=== PATIENT | female | born 1985 | race Caucasian/White ===

== ENCOUNTER 2022-02-21 11:33 | Emergency (ER) | payer BC ==
[~2022-02-21] VITALS: Ht 160 cm; Wt 74.8 kg
--- NOTE | 2022-02-21 11:42 | NUR ---
BIBS W/ FAMILY AT BEDSIDE, W/ C/O ON & OFF ABDOMINAL PAIN, NAUSEA/VOMITING X 1-1/2 WEEKS. PT REPORTS THAT SHE IS 7 WEEKS , LMP 12/2021, G-1/P-0. TO ER BED 11.
[2022-02-21] MEDS ORDERED: IV NS 0.9% 1,000 ML BAG IV ONE (12:00)
[2022-02-21] MEDS ORDERED: ONDANSETRON HCL/PF 4 MG/2 ML VIAL IVP ONE (12:00)
[2022-02-21] MEDS ORDERED: ONDANSETRON HCL/PF 4 MG/2 ML VIAL ONE (12:04)
[2022-02-21 12:15] LABS: BASOPHILS # (AUTO) 0.1 K/uL (0.0-0.2); BASOPHILS % (AUTO) 0.6 % (0.0-2.0); EOSINOPHILS % (AUTO) 0.8 % (0.0-6.0); HEMATOCRIT 39 % (33-45); HEMOGLOBIN 13.7 g/dL (11.5-14.8); LYMPHOCYTES % (AUTO) 19.5 % (20.0-44.0); MEAN CORPUSCULAR HGB CONC 35 g/dl (31.0-36.0); MEAN CORPUSCULAR VOLUME 92 fL (82-100); MONOCYTES # (AUTO) 0.7 K/uL (0.1-1.30); MONOCYTES % (AUTO) 6.5 % (2.0-12.0); NEUTROPHILS # (AUTO) 7.4 K/uL (1.8-8.9); NEUTROPHILS % (AUTO) 72.6 % (43.0-81.0); PLATELET COUNT (AUTO) 324 K/uL (150-450); RED BLOOD CELL COUNT(AUTO) 4.26 MIL/uL (4.0-5.2); WHITE BLOOD COUNT (AUTO) 10.2 K/uL (4.3-11.0)
--- NOTE | 2022-02-21 12:15 | NUR ---
PHLEB AT BEDSIDE FOR BLOOD DRAW
--- NOTE | 2022-02-21 12:21 | NUR ---
IV LINE ESTABLISHED ON LAC #20; IV FLUIDS INFUSING. ZOFRAN IV GIVEN, ZAID WELL
[2022-02-21 12:29] LABS: CALCIUM, SERUM 9.2 mg/dL (8.5-10.1); CREATININE 0.7 mg/dL (0.6-1.3); POTASSIUM 3.4 mmol/L (3.5-5.1)
[2022-02-21] MEDS ORDERED: ONDA4TAB5 PO (13:03)
--- NOTE | 2022-02-21 13:11 | NUR ---
IV removed. Catheter intact and site benign. Pressure and 4x4 applied to site. No bleeding noted.
--- NOTE | 2022-02-21 13:21 | NUR ---
Patient discharged to home in stable condition. Written and verbal after care instructions given. Patient verbalizes understanding of instruction.
[2022-02-21 13:28] VITALS: BP 120/68
== END 2022-02-21 13:29 | disposition home or self-care (01) ==
LOC: ER 11:36
DX: O21.0 Mild hyperemesis gravidarum (principal); Z3A.08 8 weeks gestation of pregnancy; Z88.0 Allergy status to penicillin; Z88.8 Allergy status to other drugs, medicaments and biological substances; Z79.899 Other long term (current) drug therapy
CPT/HCPCS: 99284; 96374; 76805; 96361; 85025; 80048; 36415; 84702; J2405; J7030

== ENCOUNTER 2025-02-25 16:19 | Emergency (ER) | payer BC ==
[~2025-02-25] VITALS: Ht 157.5 cm; Wt 74.8 kg
[~2025-02-25 16:19] MED LIST: ONDA4TAB5 PO
[2025-02-25] MEDS ORDERED: TDAP [DIPH/PERTUSSIS/TET] 0.5 ML VIAL IM ONE (16:59)
[2025-02-25] MEDS: TDAP [DIPH/PERTUSSIS/TET] 0.5 ML VIAL IM ONE (17:08)
[2025-02-25 17:23] LABS: PLATELET COUNT (AUTO) 319 K/uL (150-450); RED BLOOD CELL COUNT(AUTO) 4.48 MIL/uL (4.0-5.2); RED CELL DISTRIBUTION WIDTH 12.3 % (11.5-15.0); WHITE BLOOD COUNT (AUTO) 9.8 K/uL (4.3-11.0)
[2025-02-25 17:31] LABS: CALCIUM, SERUM 9.4 mg/dL (8.5-10.1); CREATININE 0.7 mg/dL (0.6-1.3); SODIUM SERUM 137.0 mmol/L (136-145); UREA NITROGEN, BLOOD 10.0 mg/dL (7-18)
[2025-02-25] MEDS ORDERED: CEPH-570 PO (17:54)
[2025-02-25 18:05] VITALS: BP 117/70; TEMP 98.6; O2SAT 99
[2025-02-25 18:24] LABS: PREGNANCY TEST URINE QUAL NEGATIVE (NEGATIVE)
== END 2025-02-25 18:07 | disposition home or self-care (01) ==
LOC: ER 16:26
DX: T63.301A Toxic effect of unspecified spider venom, accidental (unintentional), initial encounter (principal); Z88.8 Allergy status to other drugs, medicaments and biological substances; Z88.0 Allergy status to penicillin; Y92.89 Other specified places as the place of occurrence of the external cause
CPT/HCPCS: 36415; 80048-TC; 84703-TC; 85025-TC; 90715